=== PATIENT | female | born 1950 | race Caucasian/White ===

== ENCOUNTER → 2017-02-27 | Day surgery (SDC) | payer MEDICARE, OTHER ==
[~2017-02-27] MED LIST: (NONE)1 CA1 BU; ALBUTEROL MININEB NEB; ALBUTEROL17 GM INH; ALDACTONE25 MG PO; ASPIRIN EC81 M1 PO; ATORVASTATIN CA10 MG PO; BAYER CHEWABLE81 MG PO; BENZONATATE PO; BUDESONIDE0.25 MG/1 INH; ECOTRIN81 M1 PO; KCL PO; LASIX PO; LASIX20 MG PO; LEVOTHYROXINE25 MC1 PO; LIPITOR PO; LISINOPRIL10 MG PO; MICRO-K10 MEQ PO; MONTELUKAST SOD10 MG PO; OXYGEN; PRAVACHOL PO; PREDNISONE10 MG PO; PRILOSEC20 MG PO; PULMICORT200 MCG/AE INH; SINGULAIR PO; SPIRIVA18 MCG INH; SYNTHROID25 MCG PO; TUSSIN DM SYRU120 ML PO; ZITHROMAX500 MG PO; ZOFRAN8 MG PO; [UNRECOGNIZED DRUG - OTHER]
--- NOTE | ~2017-02-27 | OR ---
Unit #: [id number] #: [id number] Patient: MICHELLE EARLY [id number] [address] [address] [id number] MR#: [id number] NAME: MICHELLE EARLY ROOM: Date of Procedure: 02/27/2017 Admission Date: 02/27/2017 Surgeon: Flaco Sage M.D. : 1950 Attending Physician: Flaco Sage M.D. Referring Physician: Flaco Sage M.D. OPERATIVE REPORT PROCEDURE PERFORMED Colonoscopy with snare polypectomy. Colonoscopy with hemoclip application. INDICATIONS FOR PROCEDURE A 66-year-old female, positive for Cologuard test, undergoing evaluation with colonoscopy. MEDICATION Monitored anesthesia. POSTOPERATIVE FINDINGS Multiple polyps, 4 in ascending colon, 1 in transverse colon, 1 in descending colon. They were varying in size from 5 mm to 2 cm. They were removed using snare polypectomy. Hemoclip was applied to the stalk of the largest one. They were all sent for histopathology. PLAN Repeat colonoscopy in 3 years. Follow up on the pathology report. DESCRIPTION OF PROCEDURE The patient was explained of the procedure, risks, and benefits along with risks and benefits of anesthesia. She was brought to the endoscopy room. Propofol anesthesia was given. Rectal exam was done, which was normal. Colonoscope was lubricated, passed up the rectum, advanced under direct vision all the way to the cecum. Ascending colon shows three different polyps. They were all snared and sent for histopathology. Transverse colon showed one polyp that was large in stalk, it was snared and stiffed out. The hemoclip was applied of the polypectomy site to ensure bleeding hemostasis. I continued to pull the scope out. No other polyps or masses were seen. I retroflexed in the rectum, small hemorrhoids seen. Scope was gently pulled out. She tolerated it well. Dictated by... Jenna Jones/winifred TD: 03/01/2017 00:02 JOB #: [id number] CC: Jose Serrato Jr., M.D. Unit #: [id number] #: [id number] Patient: MICHELLE EARLY OPERATIVE REPORT Page 1 of 1 X Flaco Sage MD PROCEDURE OPERATIVE NOTE
== END | disposition home or self-care (01) ==
LOC: COPS 08:58
DX: D12.0 Benign neoplasm of cecum (principal); D12.2 Benign neoplasm of ascending colon; D12.6 Benign neoplasm of colon, unspecified; K64.9 Unspecified hemorrhoids; K21.9 Gastro-esophageal reflux disease without esophagitis; E03.9 Hypothyroidism, unspecified; J45.909 Unspecified asthma, uncomplicated; J44.9 Chronic obstructive pulmonary disease, unspecified; I10 Essential (primary) hypertension; Z87.891 Personal history of nicotine dependence; Z79.51 Long term (current) use of inhaled steroids; Z79.82 Long term (current) use of aspirin; Z79.899 Other long term (current) drug therapy; Z99.81 Dependence on supplemental oxygen; Z90.710 Acquired absence of both cervix and uterus; Z90.49 Acquired absence of other specified parts of digestive tract
CPT/HCPCS: 88305; J2250